=== PATIENT | female | born 1955 | race Caucasian/White ===

== ENCOUNTER 2017-02-23 08:32 | Emergency (ER) | payer OTHER ==
--- NOTE | 2017-02-23 09:33 | EDPHY ---
H & P Stated Complaint: sunday/started with leary/r side face feels swollen/pressure/ eval by pcp stefania Time Seen by Provider: 02/23/17 09:00 HPI/ROS: CHIEF COMPLAINT: New onset headache HISTORY OF PRESENT ILLNESS: 61-year-old female generally healthy with history of intermittent headaches every few months, arrives via private vehicle describing a right-sided headache which she woke with 2 days ago. Seen by her PCP Subhash Dolan with a nonfocal exam and told to go to the ER if symptoms worsen or change. This morning she woke with bifrontal headache as well as continued retro-orbital pressure. No pain with extraocular movements. No visual acuity changes. She also notes a numbness and pressure on the right side of her palate. No neck pain. No nausea or vomiting. No photophobia. No gait instability. No slurred speech. Not worst headache of life. Not thunderclap. She has a history of chronic cervical chiropractic manipulation, last manipulation was few months ago. Since then no a major minor neck or head injury or trauma. PRIMARY CARE PROVIDER:Subhash Dolan REVIEW OF SYSTEMS: A ten point review of systems was performed and is negative with the exception of the items mentioned in the HPI PAST MEDICAL & SURGICAL HISTORY: Hypothyroid. Intermittent headaches SOCIAL HISTORY: Nonsmoker. No drug use. PHYSICAL EXAM (Prior to examination, patient consented to physical exam, hands were washed and my usual and customary physical exam procedures followed) 1) GENERAL: Well-developed, well-nourished, alert and oriented. Appears to be in no acute distress. 2) HEAD: Normocephalic, atraumatic 3) HEENT: Pupils equal, round, reactive to light bilaterally. Sclera anicteric. Nasopharynx, oropharynx, clear, no lesions. The palate of the mouth is nontender, no soft tissue swelling, she does need notice decreased sensation in this area Ears bilaterally with normal tympanic membranes. 4) NECK: Full range of motion, no meningeal signs. 5) LUNGS: Clear auscultation bilaterally, no wheezes, no rhonchi, no retractions. 6) HEART: Regular rate and rhythm, no murmur, no heave, no gallop. 7) ABDOMEN: No guarding, no rebound, no focal tenderness, negative McBurney's, negative Escalona's, negative Rovsing's, negative peritoneal sign, 8) MUSCULOSKELETAL: Moving all extremities, no focal areas of tenderness, no obvious trauma. No peripheral edema or discoloration. 9) BACK: No CVA tenderness, no midline vertebral tenderness, no fluctuance, no step-off, no obvious trauma, no visual or palpable abnormality. 10) SKIN: No rash, no petechiae. 11) Psychiatric: Patient is oriented X 3, there is no agitation. 12) NEURO: Awake, alert, and oriented to person, place and time. Answers questions appropriately. There were no obvious focal neurologic abnormalities. No cerebellar dysfunction. Cranial nerves 2 through to 12 intact. Normal steady gait. Upper and lower extremities bilaterally with strength 5 / 5, reflexes 2+. DIFFERENTIAL DIAGNOSIS: In no particular order, including but not limited to subarachnoid hemorrhage, migraine headache, tension headache and infectious causes such as meningitis, pharyngitis and sinusitis. The patient understands that this diagnosis is provisional and can never be 100% accurate. Usual and customary warnings were given concerning the clinical impression and all the patient's questions were answered. The patient was instructed to return to the emergency department should her symptoms worsen or return, or develop any new symptoms, otherwise to followup as directed in discharge instructions. This is a partial list of diagnoses considered. These considerations are based on history, physical exam, past history and reassessment. - Personal History Current Tetanus/Diphtheria Vaccine: Yes - Medical/Surgical History Hx Asthma: No Hx Chronic Respiratory Disease: No Hx Diabetes: No Hx Cardiac Disease: No Hx Renal Disease: No Hx Cirrhosis: No Hx Alcoholism: No Hx HIV/AIDS: No Hx Splenectomy or Spleen Trauma: No Other PMH: hypothyroid - Social History Smoking Status: Never smoked Constitutional: Initial Vital Signs Temperature (C) 36.7 C 02/23/17 08:37 Heart Rate 102 H 02/23/17 08:37 Respiratory Rate 22 H 02/23/17 08:37 Blood Pressure 110/70 02/23/17 08:37 O2 Sat (%) 94 02/23/17 08:37 O2 Delivery Mode Room Air Allergies/Adverse Reactions: No Known Allergies Allergy (Unverified 02/23/17 08:36) Home Medications: Medication Instructions Recorded Levothyroxine 02/23/17 Medical Decision Making - Diagnostics Imaging Results: Imaging Impressions Head CT 02/23/17 09:14 Impression: No acute intracranial findings. Findings discussed with Brenda Aguilar 02/23/2017 at 10:32. Head CTA 02/23/17 09:14 Impression: 1. No acute vascular findings. 2. Indeterminate submucosal cyst in the left vallecula. Direct visualization is recommended to exclude cystic malignancy. 3. Degenerative changes in the cervical spine. 4. Additional findings as above. Stenoses are calculated using [place] Symptomatic Carotid Endarterectomy Trial (NASCET) criteria. Findings discussed with Ayaan Aguilar on February 23, 2017 at 10:32 a.m. Neck CTA 02/23/17 09:14 Impression: 1. No acute vascular findings. 2. Indeterminate submucosal cyst in the left vallecula. Direct visualization is recommended to exclude cystic malignancy. 3. Degenerative changes in the cervical spine. 4. Additional findings as above. Stenoses are calculated using [place] Symptomatic Carotid Endarterectomy Trial (NASCET) criteria. Findings discussed with Ayaan Aguilar on February 23, 2017 at 10:32 a.m. Images reviewed by myself ED Course/Re-evaluation: 9:15 a.m.: Discussed case with secondary to superimposition Dr. Bar Anderson. Will proceed with CT imaging. She has a nonfocal exam at this time. 12:05 p.m.: Re-evaluation. Resting comfortably. Discussed her imaging results. Discussed case with Dr. Anderson. She remains with a nonfocal exam and no neurologic complaints beyond continued mild headache. 12:50 p.m.: Re-evaluation, feeling improvement after Toradol right gland Decadron. Plan will be discharge with usual customary headache precautions. Remains with a nonfocal exam. She feels comfortable being discharged. - Data Points Laboratory Results: Laboratory Results 02/23/17 09:36 02/23/17 09:36 02/23/17 02/23/17 02/23/17 09:36 09:36 09:31 WBC 7.67 10^3/uL 10^3/uL (3.80-9.50) RBC 4.21 10^6/uL 10^6/uL (4.18-5.33) Hgb 12.9 g/dL g/dL (12.6-16.3) POC Hgb 13.6 gm/dL gm/dL (12.3-15.9) Hct 38.0 % % (38.0-47.0) POC Hct 40 % % (35.5-47.5) MCV 90.3 fL fL (81.5-99.8) MCH 30.6 pg pg (27.9-34.1) MCHC 33.9 g/dL g/dL (32.4-36.7) RDW 12.1 % % (11.5-15.2) Plt Count 246 10^3/uL 10^3/uL (150-400) MPV 9.3 fL fL (8.7-11.7) Neut % (Auto) 56.3 % % (39.3-74.2) Lymph % (Auto) 31.4 % % (15.0-45.0) [place] % (Auto) 10.3 % % (4.5-13.0) Eos % (Auto) 0.7 % % (0.6-7.6) Baso % (Auto) 0.8 % % (0.3-1.7) Nucleat RBC Rel Count 0.0 % % (0.0-0.2) Absolute Neuts (auto) 4.32 10^3/uL 10^3/uL (1.70-6.50) Absolute Lymphs (auto) 2.41 10^3/uL 10^3/uL (1.00-3.00) Absolute Monos (auto) 0.79 10^3/uL 10^3/uL (0.30-0.80) Absolute Eos (auto) 0.05 10^3/uL 10^3/uL (0.03-0.40) Absolute Basos (auto) 0.06 10^3/uL 10^3/uL (0.02-0.10) Absolute Nucleated RBC 0.00 10^3/uL 10^3/uL (0-0.01) Immature Gran % 0.5 % % (0.0-1.1) Immature Gran # 0.04 10^3/uL 10^3/uL (0.00-0.10) POC Sodium 142 mEq/L mEq/L (134-144) Sodium 141 mEq/L mEq/L (134-144) POC Potassium 3.7 mEq/L mEq/L (3.3-5.0) Potassium 3.9 mEq/L mEq/L (3.5-5.2) POC Chloride 105 mEq/L mEq/L (96-108) Chloride 107 mEq/L mEq/L (97-110) Carbon Dioxide 23 mEq/l mEq/l (22-31) Anion Gap 11 mEq/L mEq/L (8-16) POC BUN 9 mg/dL mg/dL (7-23) BUN 10 mg/dL mg/dL (7-23) Creatinine 0.6 mg/dL mg/dL (0.6-1.0) POC Creatinine 0.5 mg/dL L mg/dL (0.6-1.2) Estimated GFR > 60 Glucose 95 mg/dL mg/dL (70-100) POC Glucose 99 mg/dL mg/dL (70-100) Calcium 9.9 mg/dL mg/dL (8.5-10.4) Medications Given: Discontinued Medications Dexamethasone (Decadron Injection) 10 mg IVP EDNOW ONE Stop: 02/23/17 12:08 Last Admin: 02/23/17 12:26 Dose: 10 mg Ketorolac Tromethamine (Toradol) 30 mg IVP EDNOW ONE Stop: 02/23/17 11:49 Last Admin: 02/23/17 12:01 Dose: 30 mg Metoclopramide HCl (Reglan Injection) 10 mg IVP EDNOW ONE Stop: 02/23/17 12:08 Last Admin: 02/23/17 12:27 Dose: 10 mg Point of Care Test Results: 02/23/17 09:31 POC Sodium 142 POC Potassium 3.7 POC Chloride 105 POC BUN 9 POC Creatinine 0.5 L POC Glucose 99 Departure - Departure Disposition: Home, Routine, Self-Care Clinical Impression: Headache Qualifiers: Headache type: unspecified Headache chronicity pattern: acute headache Intractability: not intractable Qualified Code(s): R51 - Headache Condition: Good Instructions: Acute Headache (ED) Additional Instructions: THANK YOU FOR YOUR VISIT TO OUR EMERGENCY DEPARTMENT (ED). YOU WERE SEEN TODAY BECAUSE OF A HEADACHE. YOU MAY HAVE HAD LAB TESTS, A CT SCAN, MRI OR EVEN A LUMBAR PUNCTURE (COMMONLY REFERRED TO A SPINAL TAP). WE CANNOT ALWAYS FIND THE EXACT CAUSE OF YOUR SYMPTOMS DURING YOUR VISIT TO THE ED. PLEASE FOLLOW UP WITH YOUR DOCTOR WITHIN 24 HOURS TO BE RECHECKED. RETURN TO THE ED IMMEDIATELY IF YOUR HEADACHE WORSENS, IF YOU DEVELOP A FEVER, NECK PAIN OR NECK STIFFNESS, OR IF YOU BECOME CONFUSED OR ABNORMALLY DROWSY. Referrals: Nemo Hernández MD [Primary Care Provider] - As per Instructions Brayan Beckett MD [Medical Doctor] - 5-7 days, call for appt. (Dr. Brayan Beckett is a neurologist)
[2017-02-23 09:45] LABS: % IMMATURE GRANULYOCYTES 0.5 % (0.0-1.1); ABSOLUTE IMMATURE GRANULOCYTES 0.04 10^3/uL (0.00-0.10); ADD DIFF? NO; ADD MORPH? NO; ADD SCAN? NO; ATYPICAL LYMPHOCYTE FLAG 30 (0-99); FRAGMENT RBC FLAG 0 (0-99); HEMOGLOBIN 12.9 g/dL (12.6-16.3); LEFT SHIFT FLG 0 (0-99); LIPEMIA HEMOLYSIS FLAG 90 (0-99); MEAN CELL HEMOGLOBIN 30.6 pg (27.9-34.1); MEAN CELL HEMOGLOBIN CONCENTR. 33.9 g/dL (32.4-36.7); MEAN CELL VOLUME 90.3 fL (81.5-99.8); MEAN PLATELET VOLUME 9.3 fL (8.7-11.7); PLATELET CLUMPS FLAG 10 (0-99); PLATELET COUNT 246 10^3/uL (150-400); RED BLOOD CELL COUNT 4.21 10^6/uL (4.18-5.33); RED CELL DISTRIBUTION WIDTH 12.1 % (11.5-15.2)
[2017-02-23] MEDS ORDERED: IOPAMIDOL (ISOVUE 370) 100 ML BTL IV ONE (09:47)
[2017-02-23 10:11] LABS: ANION GAP 11 mEq/L (8-16); CALCIUM 9.9 mg/dL (8.5-10.4); CARBON DIOXIDE 23 mEq/l (22-31); CHLORIDE 107 mEq/L (97-110); CREATININE 0.6 mg/dL (0.6-1.0); GLOMERULAR FILTRATION RATE > 60; GLUCOSE 95 mg/dL (70-100); POTASSIUM 3.9 mEq/L (3.5-5.2); SODIUM 141 mEq/L (134-144)
[2017-02-23] MEDS ORDERED: KETOROLAC 30 MG/1 ML SDV IVP ONE (11:48)
[2017-02-23] MEDS ORDERED: METOCLOPRAMIDE 10 MG/2 ML VIAL IVP ONE (12:07)
[2017-02-23] MEDS ORDERED: DEXAMETHASONE 10 MG/ML VIAL IVP ONE (12:07)
[2017-02-23 13:16] VITALS: BP 120/75; PULSE 89; RESP 18; TEMP 97.9; O2SAT 92
== END 2017-02-23 13:16 | disposition home or self-care (01) ==
DX: R51 Headache (principal)
CPT/HCPCS: 82947-QW; 96374; J1885; J2765; Q9967

== ENCOUNTER → 2019-04-08 | Outpatient (CLI) | payer OTHER | LOC: FIMAGING 07:18 ==